=== PATIENT | female | born 1965 | race Caucasian/White ===

== ENCOUNTER 2022-01-20 08:50 | Day surgery (SDC) | payer OTHER ==
[~2022-01-20] VITALS: Ht 157.5 cm; Wt 108.9 kg
[2022-01-20] MEDS ORDERED: MIDAZOLAM 5 MG/5 ML VIAL ONE (10:35)
[2022-01-20] MEDS ORDERED: diphenhydrAMINE 50 MG/ML VIAL ONE (10:35)
[2022-01-20] MEDS ORDERED: fentaNYL citrate 0.05 MG/ML VIAL ONE (10:35)
[2022-01-20] MEDS: MIDAZOLAM 2 MG/2 ML VIAL IVP ONE (11:24)
[2022-01-20] MEDS: fentaNYL citrate 0.05 MG/ML VIAL IVP ONE (11:25)
[2022-01-20] MEDS: LIDOCAINE 2% 100 MG/5 ML UJET TP ONE (11:25)
== END 2022-01-20 13:04 | disposition home or self-care (01) ==
LOC: MDS 08:50 → MMU 08:51 → MDS 13:04
PROVIDERS: ATTEND Internal Medicine Gastroenterology
DX: Z12.11 Encounter for screening for malignant neoplasm of colon (principal); D12.5 Benign neoplasm of sigmoid colon; K57.30 Diverticulosis of large intestine without perforation or abscess without bleeding; Z86.010 Personal history of colon polyps; E78.5 Hyperlipidemia, unspecified; F32.A Depression, unspecified; F41.9 Anxiety disorder, unspecified; I25.10 Atherosclerotic heart disease of native coronary artery without angina pectoris; K21.9 Gastro-esophageal reflux disease without esophagitis; M19.90 Unspecified osteoarthritis, unspecified site; Z90.710 Acquired absence of both cervix and uterus; Z79.82 Long term (current) use of aspirin; Z20.822 Contact with and (suspected) exposure to COVID-19; Z79.899 Other long term (current) drug therapy
CPT/HCPCS: 45385; 87426; J2250; J3010; J1200